=== PATIENT | male | born 1995 | race Caucasian/White ===

== ENCOUNTER 2025-08-27 04:47 | Observation (INO) | payer OTHER, SELFPAY ==
[2025-08-27] VITALS (18 sets, daily range): BP systolic 107–181; BP diastolic 54–93; PULSE 63–96; RESP 12–24; TEMP 36.3–37.6; O2SAT 94–99; BMI 23.3
[2025-08-27] MEDS: LIDOCAINE 2% INJ MDV 20ML 20 ML INJ (05:00)
--- NOTE | 2025-08-27 05:00 | PC.NURSE ---
pt brought in by porter, he jumped off of machine at work and his right foot was run over, pt's great toe is crushed, the 2nd toe is crushed is to the 1st interphalangeal joint and the tip of the 3rd toe is crushed. wounds were dressed prior to coming upon arrival Dr Thornton in room, foot unwrapped and evaluated, pt does not want to take opiates if he can help, Dr Thornton administered a block, pt obtained pain relief with the block and was rewrapped with idalia.
--- NOTE | 2025-08-27 05:05 | DI.RAD.S_ITS ---
PROCEDURE: XR FOOT RT 2V INDICATIONS: mashed up foot from hydraulic machine TECHNIQUE: 2 views of the foot were acquired. COMPARISON: None. FINDINGS: There is soft tissue injury with swelling and subcutaneous gas involving the 1st, 2nd and 3rd toe. Gas is visualized extending to the level of the metatarsophalangeal joints. Multiple fracture fragments are seen distal to the distal phalanx of the 1st toe with approximately 4 millimeters of displacement. Some of these fracture fragments appear well corticated and may be related to prior injury. There is nondisplaced fracture involving the medial aspect of the base of the 1st distal phalanx. Additional fracture fracture fragments are seen distal to the 3rd distal phalanx. IMPRESSION: Acute soft tissue injury involving the 1st, 2nd and 3rd digits of the right foot with associated subcutaneous gas extending to the level of the MTP joints. Acute nondisplaced fracture of the medial aspect of the 1st distal phalanx base. Additional fracture fragment seen distal to the 1st distal phalanx and 3rd distal phalanx which may represent acute fracture fragments versus sequela of prior injury as some appear well corticated. Findings are concordant with preliminary interpretation provided by [facility]. Approved by: Monica Cole M.D.,Ph.D. on 08/27/2025 at 7:47
--- NOTE | 2025-08-27 05:21 | PC.NURSE ---
Dr Thornton in room to irrigate the wounds, block administered again and relief obtained, Dr Thornton irrigating wounds with NS and pt tolerating well, pictures obtained and placed in chart
[2025-08-27 05:24] LABS: Add Manual Diff / Slide Review NO; Hematocrit 40.0 % (41-53); Hemoglobin 13.7 g/dL (13.5-17.5); Lymphocytes Absolute Auto 3700 /uL (1100-4500); Mean Corpuscular HGB Conc 34.4 % (30-36); Mean Corpuscular Hemoglobin 30.2 PG (26-34); Mean Corpuscular Volume 87.8 fL (80-100); Platelet Count 315 X10^3/uL (150-400)
[2025-08-27] MEDS: SODIUM CHLORIDE 0.9% 1,000 ML 1000 ML IV (05:30)
[2025-08-27 05:34] LABS: Alanine Aminotransferase 24 IU/L (<50); Albumin 4.8 g/dL (3.5-5.0); Albumin Globulin Ratio 1.8 (1.0-2.8); Alkaline Phosphatase 58 U/L (38-126); Blood Urea Nitrogen 20 mg/dL (9-20); Calcium 9.3 mg/dL (8.4-10.2); Carbon Dioxide 19 mmol/L (22-32); Chloride 106 mmol/L (98-107); Estimated Glomerular Filt Rate > 60 mL/min (>60); Globulin 2.7 g/dL (1.7-4.1); Glucose 93 mg/dL (70-99); HEMOLYSIS 25 (0-50); Lactate (Lactic Acid) 1.8 mmol/L (0.7-2.1); Potassium 3.7 mmol/L (3.4-5.1); Sodium 136 mmol/L (137-145); Total Protein 7.5 g/dL (6.3-8.2)
--- NOTE | 2025-08-27 05:51 | PC.WOUNDPHOT ---
Right foot injury
--- NOTE | 2025-08-27 06:27 | ED_ITS ---
HPI - Extremity Injury (Lower) General Chief Complaint: Extremity Injury, Lower Stated Complaint: R Foot Injury Time Seen by Provider: 08/27/25 04:52 Source: patient Mode of arrival: Wheelchair History of Present Illness HPI Narrative: 29-year-old male who was involved in a crush injury involving his right foot mainly the 1st 3 toes from a hydraulic machine at work. The foot is obviously mangled and the patient is shaking from pain. He denies much sensation especially in the 1st and 2nd toes. No other injuries. Related Data Allergies Allergy/AdvReac Type Severity Reaction Status Date / Time amoxicillin Allergy Verified 08/27/25 04:56 Opioids - Morphine Analogues Allergy Verified 08/27/25 04:56 Penicillins Allergy Verified 08/27/25 04:56 Review of Systems Review of Systems ROS Unobtainable: All systems reviewed & are unremarkable except as noted in HPI and below Patient History tobacco type: vaping Exam Narrative Exam Narrative: General: Patient appears to be in no acute distress, acting appropriately Head: normocephalic, atraumatic, HEENT: Pupils equal round reactive, eyes tracking well, neck supple, no JVD Heart: regular rate and rhythm, no murmurs, rubs, or gallops heard Lungs: clear to auscultation, no adventitious sounds Abdomen: soft , nontender, nondistended, positive bowel sounds right foot: First 3 toes are obviously mangled. Great toe has a jagged laceration and is dangling a bit almost to the point of falling off. The 2nd toe distal end is obviously crushed as well as the 3rd distal and but less so than the 1st 2 toes. Patient denies much sensation in the 1st 2 toes, dorsalis pedal and posterior tibial pulses are felt 2+. Initial Vital Signs Initial Vital Signs: Vital Signs Temperature 99.6 F 08/27/25 04:56 Pulse Rate 89 08/27/25 04:56 Respiratory Rate 22 08/27/25 04:56 Blood Pressure 181/91 H 08/27/25 04:56 Pulse Oximetry 99 08/27/25 04:56 Oxygen Delivery Method Room Air 08/27/25 04:56 Procedures Nerve Block Nerve Block 1: Local Anesthetic: lidocaine 2% Amount of anesthesia used (mL): 15 Side: right Nerve Blocks: other (1st, 2nd, and 3rd toes ) Procedure Successful: Yes Patient Tolerated Procedure: Well and No complications Course Orders Ordered: ED Orders 08/27/25 05:05 XR foot RT 2V Stat 08/27/25 05:15 CBC Auto Diff [Complete Blood Count AUTO DIFF] Stat CMP [Comprehensive Metabolic Panel] Stat Lactate (Lactic Acid) Stat Discontinued Medications Cefazolin Sodium 3 gm/ Sodium (Chloride) 100 mls @ 200 mls/hr IV NOW ONE Stop: 08/27/25 05:09 Last Infusion: 08/27/25 07:26 Dose: Infused Documented By: Admin: 08/27/25 05:27 Dose: 200 mls/hr Documented By: LISSETTE Sodium Chloride (Normal Saline 0.9%) 1,000 mls @ 1,000 mls/hr IV BOLUS ONE Stop: 08/27/25 06:09 Last Infusion: 08/27/25 07:26 Dose: Infused Documented By: Admin: 08/27/25 05:30 Dose: 1,000 mls/hr Documented By: LISSETTE Lidocaine HCl (Lidocaine 2% Inj Mdv 20ml) 20 ml INJ INTRA-OP ONE Stop: 08/27/25 04:58 Last Admin: 08/27/25 05:00 Dose: 20 ml Documented By: CLAUDIA Lorazepam (Lorazepam 2 Mg/Ml Inj) 0.5 mg IV NOW ONE Stop: 08/27/25 05:11 Last Admin: 08/27/25 05:30 Dose: 0.5 mg Documented By: LISSETTE Tramadol HCl (Tramadol 50 Mg Tablet) 50 mg PO NOW ONE Stop: 08/27/25 05:36 Last Admin: 08/27/25 05:35 Dose: 50 mg Documented By: LISSETTE Consultations Consultation #1: Dr Gordillo Orthopedic surgery on-call was consulted and pictures were sent of the injury. It was decided to take the patient into the OR for a more thorough wash up and repair. Vital Signs Vital signs: Vital Signs - 8 hr 08/27/25 04:56 08/27/25 04:57 08/27/25 05:00 Temperature 99.6 F Pulse Rate 89 81 79 Respiratory Rate 22 Blood Pressure 181/91 H Pulse Oximetry 99 98 99 Oxygen Delivery Method Room Air 08/27/25 05:00 08/27/25 05:30 08/27/25 05:31 Temperature Pulse Rate 96 H 83 Respiratory Rate Blood Pressure 137/73 Pulse Oximetry 98 98 Oxygen Delivery Method 08/27/25 05:31 08/27/25 06:00 08/27/25 06:01 Temperature Pulse Rate Respiratory Rate Blood Pressure 146/93 H 150/62 H Pulse Oximetry 95 Oxygen Delivery Method 08/27/25 06:01 Temperature Pulse Rate 74 Respiratory Rate Blood Pressure Pulse Oximetry 98 Oxygen Delivery Method MDM - Extremity Injury (Lower) Lab Data 08/27/25 05:15 08/27/25 05:15 Labs: Lab Results 08/27/25 Range/Units 05:15 WBC 14.5 H (4.5-11.0) X10^3/uL RBC 4.55 (4.5-5.9) X10^6/uL Hgb 13.7 (13.5-17.5) g/dL Hct 40.0 L (41-53) % MCV 87.8 (80-100) fL MCH 30.2 (26-34) PG MCHC 34.4 (30-36) % RDW 13.3 (11.6-14.8) % Plt Count 315 (150-400) X10^3/uL Neut % (Auto) 64.1 (50-75) % Lymph % (Auto) 25.8 (25-40) % [place] % (Auto) 9.3 (3-14) % Eos % (Auto) 0.2 L (2-4) % Baso % (Auto) 0.6 (0-2) % Neut # (Auto) 9300 H (5032-4384) /uL Lymph # (Auto) 3700 (6172-9199) /uL [place] # (Auto) 1300 H (0-900) /uL Eos # (Auto) 0 (0-450) /uL Baso # (Auto) 100 (0-100) /uL Sodium 136 L (137-145) mmol/L Potassium 3.7 (3.4-5.1) mmol/L Chloride 106 (98-107) mmol/L Carbon Dioxide 19 L (22-32) mmol/L BUN 20 (9-20) mg/dL Creatinine 0.96 (0.66-1.25) mg/dL Estimated GFR > 60 (>60) mL/min BUN/Creatinine Ratio 20.8 (6-22) Glucose 93 (70-99) mg/dL Lactate 1.8 (0.7-2.1) mmol/L Calcium 9.3 (8.4-10.2) mg/dL Total Bilirubin 1.7 H (0.2-1.3) mg/dL AST 37 (17-59) IU/L ALT 24 (<50) IU/L Alkaline Phosphatase 58 (38-126) U/L Total Protein 7.5 (6.3-8.2) g/dL Albumin 4.8 (3.5-5.0) g/dL Globulin 2.7 (1.7-4.1) g/dL Albumin/Globulin Ratio 1.8 (1.0-2.8) Imaging Data Extremity x-ray #1: Radiologist's Impression: Injury involving the 1st , 2nd, and 3rd toes of the right foot with acute appearing fracture of the medial aspect of the right 1st distal phalanx. Additional osseous fragments within the more distal soft tissues could represent acute fracture fragments or sequelae of an old injury as some of these appear corticated. [facility] Narrative Medical decision making narrative: 29-year-old male with a crush injury of his right foot involving the great toe 2nd toe and 3rd toe from a work injury from a hydraulic machine. Initially attempt was made to suture here but after more thorough evaluation, it was decided to take the patient to the OR for more thorough washout along with repair. Patient given prophylactic antibiotics Ancef and digital nerve blocks were done for the 1st 2nd and 3rd toes for pain relief. Patient also washed out a bit here in the ED as well as given some tramadol for pain. Patient refused any other narcotics for pain relief. Currently patient's pain is somewhat controlled. Discharge Plan Departure Patient Disposition: Admitted to Surgery Clinical Impression: Crush injury of right foot Qualifiers: Encounter type: initial encounter Qualified Code(s): S97.81XA - Crushing injury of right foot, initial encounter Admit Date/Time: 08/27/25 07:10 Admit Provider: Marina Gordillo
--- NOTE | 2025-08-27 06:30 | PC.NURSE ---
wounds redressed with xeroform, telfa and reginald, ortho to come in and take pt to surgery
--- NOTE | 2025-08-27 07:44 | PC.NURSE ---
This RN went and introuduced themselves to the patient and visitors. Patient changed out of his clothes to prepare for surgery and placed in gown. Patient has 2 belonging bags that are labeled with his data that include his vape.
--- NOTE | 2025-08-27 08:43 | PM.HP.IH.1 ---
History of Present Illness History of Present Illness Date Patient Seen: 08/27/25 Time Patient Seen: 08:20 Date of Onset of Symptoms: 08/27/25 Chief complaint: R Foot Injury Narrative: 29-year-old male with right foot crush injury that occurred on 08/27/2025. 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 He was seen in the emergency room and his wounds were washed out. I was consulted for potential I and D. the patient denies pain elsewhere. He has been NPO since 9:00 p.m. on 08/26 2025 Physical exam reveals a well-developed well-nourished 29-year-old in no acute distress Evaluation of his right foot demonstrates that his great toe 2nd toe 3rd toe and 4th toe were all lacerated with the tip of the 3rd toe just proximal to the nail is nearly completely lacerated in his held on only by the medial skin flap he has a near circumferential laceration to the great toe just proximal to the nail as well as 2nd toe is crushed. There was no visible bone on initial examination. Two views of the right foot demonstrate a tuft fracture of the great toe distal phalanx and 2nd toe distal phalanx Acute soft tissue injury involving the 1st, 2nd and 3rd digits of the right foot with associated subcutaneous gas extending to the level of the MTP joints. Acute nondisplaced fracture of the medial aspect of the 1st distal phalanx base. Additional fracture fragment seen distal to the 1st distal phalanx and 3rd distal phalanx which may represent acute fracture fragments versus sequela of prior injury as some appear well corticated. Meds Home Medications and Allergies Allergies Allergy/AdvReac Type Severity Reaction Status Date / Time amoxicillin Allergy Verified 08/27/25 04:56 Opioids - Morphine Analogues Allergy Verified 08/27/25 04:56 Penicillins Allergy Verified 08/27/25 04:56 Exam Vital Signs (past 8 hours): - 08/27/25 04:56 08/27/25 04:57 08/27/25 05:00 Temperature 99.6 F Pulse Rate 89 81 79 Respiratory Rate 22 Blood Pressure 181/91 H Pulse Oximetry 99 98 99 Oxygen Delivery Method Room Air 08/27/25 05:00 08/27/25 05:30 08/27/25 05:31 Temperature Pulse Rate 96 H 83 Respiratory Rate Blood Pressure 137/73 Pulse Oximetry 98 98 Oxygen Delivery Method 08/27/25 05:31 08/27/25 06:00 08/27/25 06:01 Temperature Pulse Rate Respiratory Rate Blood Pressure 146/93 H 150/62 H Pulse Oximetry 95 Oxygen Delivery Method 08/27/25 06:01 08/27/25 06:40 08/27/25 07:00 Temperature Pulse Rate 74 74 67 Respiratory Rate Blood Pressure Pulse Oximetry 98 97 99 Oxygen Delivery Method 08/27/25 07:30 08/27/25 07:41 08/27/25 07:42 Temperature Pulse Rate 64 77 Respiratory Rate Blood Pressure 110/66 Pulse Oximetry 97 98 Oxygen Delivery Method Oxygen Delivery Method Room Air Objective Labs 08/27/25 05:15 08/27/25 05:15 Labs: Laboratory Results - last 24 hr 08/27/25 05:15 WBC 14.5 H RBC 4.55 Hgb 13.7 Hct 40.0 L MCV 87.8 MCH 30.2 MCHC 34.4 RDW 13.3 Plt Count 315 Neut % (Auto) 64.1 Lymph % (Auto) 25.8 [place] % (Auto) 9.3 Eos % (Auto) 0.2 L Baso % (Auto) 0.6 Neut # (Auto) 9300 H Lymph # (Auto) 3700 [place] # (Auto) 1300 H Eos # (Auto) 0 Baso # (Auto) 100 Sodium 136 L Potassium 3.7 Chloride 106 Carbon Dioxide 19 L BUN 20 Creatinine 0.96 Estimated GFR > 60 BUN/Creatinine Ratio 20.8 Glucose 93 Lactate 1.8 Calcium 9.3 Total Bilirubin 1.7 H AST 37 ALT 24 Alkaline Phosphatase 58 Total Protein 7.5 Albumin 4.8 Globulin 2.7 Albumin/Globulin Ratio 1.8 Assessment & Plan Assessment and plan (1) Crush injury of right foot: Qualifiers: Encounter type: initial encounter Qualified Code(s): S97.81XA - Crushing injury of right foot, initial encounter Status: Acute Plan I discussed with the patient the risks, benefits and alternatives of surgical versus nonsurgical treatment. I discussed the risks of surgery to include but not limited to damage to arteries, veins, nerves, need for additional surgery, need for partial amputation of his toes. I also discussed the risks of infection and wound complications, I also discussed the risks of osteomyelitis and need for further amputation. He understands all these risks and wishes to proceed. I will take him to the operating room today on 08/27/2025 for irrigation and debridement with possible tendon repair and possible partial amputation of the toes. Time-Based Coding :: [TOTAL MINUTES] spent with patient and on the chart (including review of chart, obtaining history, exam, reviewing outside data, placing orders, documenting exam and treatment plan, and counseling patient) on [DATE]. PROFEE Senior Attorney Document charge(s): Yes
--- NOTE | 2025-08-27 08:49 | PC.NURSE ---
Dr. Gordillo came and met with the patient and explained this surgery to patient and patient signed consent. Provider signed consent and then this RN signed consent. This RN gave verbal report to Hyacinth Saucedo RN PACU.
--- NOTE | 2025-08-27 09:10 | PC.NURSE ---
Hyacinth Saucedo RN arrives and takes patient with her to PACU in wheelchair after patient was able to independently transfer. Patient mom takes two bags of labelled belongings with her out of this department and accompanies patient with RN to PACU.
[2025-08-27] MEDS: LACTATED RINGERS 1,000 ML 42 ML IV (09:29)
[2025-08-27] MEDS: ACETAMINOPHEN 325 MG TABLET 975 MG PO (09:36)
--- NOTE | 2025-08-27 10:09 | PM.PREOP ---
Pre-operative Note COVID-19 COVID-19 status: Not tested Interval Note History & Physical reviewed/Exam performed by Physician: Yes Changes to H&P: No
--- NOTE | 2025-08-27 11:12 | SUR.OPER ---
Supine on padded OR bed, head on pillow, arms secured on padded arm boards at <90 degrees abduction, legs uncrossed, safety belt at torso, tape over blanket over non operative lower leg. Surgeon in room at time of positioning to assist, all pressure points padded and protected.
--- NOTE | 2025-08-27 12:33 | PM.OP.1 ---
Operative Date/Time/Diagnoses Date of procedure: 08/27/25 Time of procedure: 11:00 Pre-op diagnosis: right foot crush injury with open fractures to great toe, 2nd toe and 3rd toe Post-op diagnosis: same Procedure & Clinicians Procedure: I & D right foot with extensive repair - 6 cm great toe, 2 cm second toe, 2 cm 3rd toe Same procedure(s) as scheduled: Yes Surgeon: Marina Gordillo Assisted?: Yes [employer]: Sherry Canales Anesthesia Type: General Operative Notes Findings: see below Closure Type: primary Specimen(s): none sent Applied: none Estimated Blood Loss (mL): 10 Blood products transfused: none Tourniquet time (min): 57 Procedure in detail: The patient was met in the preoperative holding area; his right foot was signed as the correct extremity. He was taken back to the operating room and placed in supine position. A well-padded tourniquet was placed to his right lower extremity. 2 g of IV Ancef were given to the patient. The patient was prepped and draped in the standard sterile fashion. A time-out was performed confirming the correct patient. Correct extremity, initials on the operative site and administration of IV antibiotics. The tourniquet was inflated to 200 mmHg. And the I started irrigating his foot. His great toe was nearly avulsed off. There was a pedicle at the medial aspect of his foot that I hope contained blood supply to the distal part of the toe. I irrigated copiously with 9 L for the 1st 2nd 3rd 4th toes and say remaining tissue was healthy and bleeding. I removed the great toenail and 2nd and 3rd digit toenails as well. After copious irrigation I then did an extensive closure to the great toe and simple interrupted sutures. I repaired the nail bed next I moved onto the 2nd and in the 3rd digits repairing them with simple interrupted Monocryl after closure the tourniquet was deflated and there was bleeding at the nail bed of the great toes well as the distal phalanx. Sterile dressing was applied consisting of Xeroform, plain gauze, cast padding and a 4 in Rene wrap. The patient will be discharged with oral antibiotics pain medication nonweightbearing and follow up through 4 days for a wound check. Discussed with his in his mother any signs of infection he is to return to clinic sooner. He should elevate his lower extremity above heart level. Complications: none Post-operative Condition: stable Disposition: PACU
== END 2025-08-27 12:58 | disposition home or self-care (01) ==
LOC: ED 06:53 → AC 07:11
PROVIDERS: Admitting Provider Orthopaedic Surgery; Emergency Provider Family Medicine; Referring Provider Family Medicine; Visit Provider Orthopaedic Surgery
PROC: (CPT 13132; principal; 2025-08-27 10:30)
DX: S97.111A Crushing injury of right great toe, initial encounter (principal); S97.121A Crushing injury of right lesser toe(s), initial encounter; S92.421B Displaced fracture of distal phalanx of right great toe, initial encounter for open fracture; S92.531B Displaced fracture of distal phalanx of right lesser toe(s), initial encounter for open fracture; W31.89XA Contact with other specified machinery, initial encounter; Y93.89 Activity, other specified; Y92.89 Other specified places as the place of occurrence of the external cause; Y99.0 Civilian activity done for income or pay
CPT/HCPCS: 13132; 12002; 11732; 11760; 11730; 64450; 73620; 80053; 83605; 85025; 96365; 96366; 96375; 99284; G0378; J0330; J0687; J1100; J1885; J2060; J2250; J2405; J2704; J3010; J7030; J7050; J7120

== ENCOUNTER → 2025-09-08 11:46 | Outpatient (CLI) | payer OTHER, SELFPAY ==
--- NOTE | 2025-09-08 11:47 | DI.CT.S_ITS ---
PROCEDURE: CT ANGIO ABD AORTA RUNOFF INDICATIONS: eval circulation TECHNIQUE: After the administration of intravenous contrast, 2.5 mm sections acquired from T12 to the feet, with optional delayed image acquisition from the knees to the feet. 3-dimensional maximum intensity projection (MIP) coronal and sagittal reformats, and/or 3-dimensional volume rendering reformatting was then performed. For radiation dose reduction, the following was used: automated exposure control. COMPARISON: None. FINDINGS: Image Quality: Diagnostic. Abdominal aorta: No aortic aneurysm or dissection. Splanchnic vessels: Patent without hemodynamically significant stenosis or aneurysm. Right lower extremity: Patent without hemodynamically significant stenosis or aneurysm. Normal appearing three-vessel runoff to ankle and foot. Left lower extremity: Patent without hemodynamically significant stenosis or aneurysm. Normal 3 vessel runoff to ankle and foot. Lower Chest: No significant findings. ABDOMEN: Liver: No solid mass. Gallbladder: No radiopaque gallstones or wall thickening. Biliary ducts: No biliary dilation. Pancreas: No ductal dilation. Spleen: Size is within normal limits. Adrenal Glands: No adrenal nodules. Kidneys and Ureters: No hydronephrosis. No solid mass. No complex renal cystic lesion which requires follow up. Stomach and Bowel: Normal colonic caliber, without significant wall thickening. Moderate fecal stasis in the colon is seen. No abscess collection. Peritoneum: No abnormal intraperitoneal fluid. No free air. Ventral Wall: No hernia. Abdominal Nodes: No retroperitoneal or mesenteric adenopathy by size criteria. Vessels: Aorta and inferior vena cava are normal in size. PELVIS: Pelvic Organs: Unremarkable. Bladder: Unremarkable. Pelvic Nodes: No enlarged lymph nodes. Miscellaneous: No inguinal hernias are seen. Bones: No aggressive osseous abnormality. IMPRESSION: 1. No abdominal aortic aneurysm or dissection. No hemodynamically significant stenosis is seen in branches of abdominal aorta. 2. No hemodynamically significant stenosis is seen in bilateral lower extremity arteries. Normal 3 vessel runoff to bilateral ankle and feet. 3. No acute inflammatory process is seen in abdomen or pelvis. Chronic findings as above. Dictated by: Dilip Ricketts M.D. on 09/08/2025 at 12:39 Approved by: Dilip Ricketts M.D. on 09/08/2025 at 12:46
== END ==
LOC: CT 11:47
PROVIDERS: PCP Student in an Organized Health Care Education/Training Program; Referring Provider Orthopaedic Surgery; Visit Provider Orthopaedic Surgery
DX: S97.81XD Crushing injury of right foot, subsequent encounter (principal); X58.XXXD Exposure to other specified factors, subsequent encounter
CPT/HCPCS: 75635; Q9967